=== PATIENT | male | born 1940 | race Caucasian/White ===

== ENCOUNTER → 2019-02-08 | Outpatient (CLI) | payer MEDICARE, OTHER ==
--- NOTE | 2019-02-08 14:53 | Diagnostic Imaging Report ---
EXAM: US TESTICULAR DATE: 02/08/2019 10:48 AM INDICATION: Unilateral inguinal hernia COMPARISON: None FINDINGS: The right testicle is normal in size measuring 3.7 x 1.9 x 2.9 cm. The testicular parenchyma appears heterogeneous. No discrete focal intratesticular lesion is identified. Arterial and venous flow are preserved. There is no evidence for hyperemia. The right epididymis measures 0.7 x 1.3 x 1.1 cm. There is a trace hydrocele present. No varicocele is present. The left testicle is normal in size measuring 3.8 x 2.4 x 3.2 cm. The testicular parenchyma is homogeneous without evidence for focal abnormality. Arterial and venous flow are preserved. There is no evidence for hyperemia. The left epididymis measures 1.1 x 0.5 x 0.6 cm. There is no hydrocele or varicocele present. IMPRESSION: Heterogeneous echotexture of the right testicle which is nonspecific but may reflect sequela of prior trauma or seminiferous tubular atrophy. Orchitis is thought to be less likely given no evidence for hyperemia. Trace right-sided hydrocele. Signed by: Dr. Michael Dennis MD on 02/08/2019 2:50 PM
== END ==
LOC: US 10:33
PROVIDERS: ATTEND Urology
DX: K40.90 Unilateral inguinal hernia, without obstruction or gangrene, not specified as recurrent (principal)
CPT/HCPCS: 76870; 93976

== ENCOUNTER → 2019-07-07 | Day surgery (SDC) | payer MEDICARE, OTHER ==
[2019-07-04 15:25] LABS: BASOPHILS % 0.5 % (0.0-1.0); EOSINOPHILS # (AUTO) 0.2 (0.0-0.4); EOSINOPHILS % 3.2 % (0.0-6.0); HEMATOCRIT 46.8 % (38.2-49.6); HEMOGLOBIN 15.3 g/dL (14.0-18.0); LYMPHOCYTES # (AUTO) 1.7 (1.0-3.2); LYMPHOCYTES % 25.5 % (18.0-39.1); MEAN CORPUSCULAR HEMOGLOBIN 31.7 pg (28-32); MEAN CORPUSCULAR HGB CONC 32.7 g/dL (31-35); MEAN CORPUSCULAR VOLUME 97.1 fL (81-99); MONOCYTES # (AUTO) 0.5 (0.2-0.8); MONOCYTES % 7.8 % (4.4-11.3); NEUTROPHILS # (AUTO) 4.2 (2.1-6.9); NEUTROPHILS % 62.7 % (38.7-80.0); PLATELET COUNT 223 x10e3/uL (140-360); RED BLOOD COUNT 4.82 x10e6/uL (4.3-5.7); RED CELL DISTRIBUTION WIDTH 13.3 % (11.7-14.4)
--- NOTE | 2019-07-04 15:31 | Diagnostic Imaging Report ---
EXAM: CHEST 2 VIEWS DATE: 07/04/2019 3:06 PM INDICATION: Elevated PSA, preoperative evaluation COMPARISON: None FINDINGS: The trachea is midline. The lungs are symmetrically expanded without evidence for large focal consolidation, pneumothorax, or significant pleural effusion. The cardiomediastinal silhouette and pulmonary vasculature are within normal limits. No acute osseous abnormality is identified. The surrounding soft tissues are unremarkable. IMPRESSION: No acute cardiopulmonary process identified. Signed by: Dr. Michael Dennis MD on 07/04/2019 3:27 PM
[~2019-07-07] MED LIST: ASPIRIN325 MG PO; B&O 60MG R/S 60 MG SUPP PR ONE; DEXAMETHASONE SOD PHOS INJ 4 MG/ML VIAL ONE; DIGOXIN125 MCG PO; FENTANYL CITRATE/PF 100MCG/2 ML INJ ONE; GENTAMICIN 80MG/NS 100 ML 200 ML IV ONE; IOPAMIDOL 300MG/ML 50ML INFUS..BTL IV ONE; KETOROLAC TROMETHAMINE 30 MG/ML VIAL ONE; LATANOPROST2.5 ML OP; LIDOCAINE HCL 2% LOCAL INJ 5 ML SDV VIAL INJ ONE; METOPROLOL SUCC25 MG PO; ONDANSETRON HCL INJ 2MG/ML 2ML 2 MG/ML VIAL ONE; PIPER-TAZ 3.375 GM 50 ML ONE; PROPOFOL IV EMULSION 10 MG/ML 20 ML VIAL ONE; SEVOFLURANE INHAL SOLN 250 ML PEN BTL ONE
--- OUTSIDE RECORDS SUMMARY | 2019-07-07 09:27 | XMS REPORT ---
Author Author [facility] Organization [facility] Address Unknown Phone Unavailable Care Team Providers Care Topography Technician Name Role Phone RAMAKRISHNA RED Unavailable Unavailable Problems This patient has no known problems. Allergies, Adverse Reactions, Alerts This patient has no known allergies or adverse reactions. Medications This patient has no known medications. Results Test Description Test Time Test Comments Text Results Atomic Results Result Comments CHEST 2 VIEWS 2019-07-04 15:27:[address] [address] Patient Name: JACKSON ROTH MR #: [id number] : 1940 Age/Sex: 78/M Req #: [id number] [facility] Physician: Ordered by: RAMAKRISHNA RED MD Report #: [id number] Location: OR Room/Bed: Procedure: [id number] DX/CHEST 2 VIEWS Exam Date: 07/04/19 Exam Time: 1500 REPORT STATUS: Signed EXAM: CHEST 2 VIEWS DATE: 07/04/2019 3:06 PM INDICATION: Elevated PSA, preoperative evaluation COMPARISON: None FINDINGS: The trachea is midline. The lungs are symmetrically expanded without evidence for large focal consolidation, pneumothorax, or significant pleural effusion. The cardiomediastinal silhouette and pulmonary vasculature are within normal limits. No acute osseous abnormality is identified. The surrounding soft tissues are unrema rkable. IMPRESSION: No acute cardiopulmonary process identified. Signed by: Dr. Michael Nichole MD on 07/04/2019 3:27 PM Dictated By: MICHAEL NICHOLE MD 26 Transcribed By: HARVEY on 07/04/191526 COPY TO: RAMAKRISHNA RED MD TESTICULAR 2019-02-08 14:46:00 [place] [address] Patient Name: JACKSON ROTH MR #: [id number] : 1940 Age/Sex: 78/M Req #: [id number] Adm Physician: Ordered by: RAMAKRISHNA RED MD Report #: [id number] Location: Room/Bed: Procedure: [id number] US/US TESTICULAR Exam Date: 02/08/19 Exam Time: 1110 REPORT STATUS: Signed EXAM: US TESTICULAR DATE: 02/08/2019 10:48 AM INDICATION: Unilateral inguinal hernia COMPARISON: None FINDINGS: The right testicle is normal in size measuring 3.7 x 1.9 x 2.9 cm. The testicular parenchyma appears heterogeneous. No discre te focal intratesticular lesion is identified. Arterial and venous flow are preserved. There is no evidence for hyperemia. The right epididymis measures 0.7 x 1.3 x 1.1 cm. There is a trace hydrocele present. No varicocele is present. The left testicle is normal in size measuring 3.8 x 2.4 x 3.2 cm. The testicular parenchyma is homogeneous without evidence for focal abnormality. Arterial and venous flow are preserved. There is no evidence for hyperemia. The left epididymis measures 1.1 x 0.5 x 0.6 cm. There is no hydrocele or varicocele present. IMPRESSION: Heterogeneous echotexture of the right testicle which is nonspecific but may reflect sequela of prior trauma or seminiferous tubular atrophy. Orchitis is thought to be less likely given no evidence for hyperemia. Trace right-sided hydrocele. Signed by: Dr. Michael Nichole MD on 02/08/2019 2:50 PM Dictated By: MICHAEL NICHOLE MD 49 Transcribed By: HARVEY on 02/08/19 145 COPY TO: RAMAKRISHNA RED MD US TESTICULAR DOPPLER LTD 2019-02-08 14:46:00 [place] [address] Patient Name: JACKSON ROTH MR #: [id number] : 1940 Age/Sex: 78/M Req #: [id number] Adm Physician: Ordered by: RAMAKRISHNA RED MD Report #: [id number] Location: US Room/Bed: Procedure: [id number] US/US TESTICULAR DOPPLER LTD Exam Date: 02/08/19 Exam Time: 1110 REPORT STATUS: Signed EXAM: US TESTICULAR DATE: 02/08/2019 10:48 AM INDICATION: Unilateral inguinal hernia COMPARISON: None FINDINGS: The right testicle is normal in size measuring 3.7 x 1.9 x 2.9 cm. The testicular parenchyma appears heterogeneous. No discrete focal intratesticular lesion is identified. Arterial and venous flow are preserved. There is no evidence for hyperemia. The right epididymis measures 0.7 x 1.3 x 1.1 cm. There is a trace hydrocele present. No varicocele is present. The left testicle is normal in size measuring 3.8 x 2.4 x 3.2 cm. The testicular parenchyma is homogeneous without evidence for focal abnormality. Arterial and venous flow are preserved. There is no evidence for hyperemia. The left epididymis measures 1.1 x 0.5 x 0.6 cm. There is no hydrocele or varicocele present. IMPRESSION: Heterogeneous echotexture of the right testicle which is nonspecific but may reflect sequela of prior trauma or seminiferous tubular atrophy. Orchitis is thought to be less likely given no evidence for hyperemia. Trace right-sided hydrocele. Signed by: Dr. Michael Nichole MD on 02/08/2019 2:50 PM Dictated By: MICHAEL NICHOLE MD 6 Transcribed By: HARVEY on 02/17/19916 COPY TO: RAMAKRISHNA RED MD
--- NOTE | 2019-07-07 16:06 | Diagnostic Imaging Report ---
OR Fluoroscopy: IMPRESSION: Fluoroscopy service provided in the OR. Interpretation not requested. Signed by: Gavin Munoz MD on 07/07/2019 4:03 PM
[2019-07-07 18:00] VITALS: BP 137/80
--- NOTE | 2019-07-10 00:01 | Operative Report ---
DATE OF PROCEDURE: 07/07/2019 SURGEON: Salvatore Gross MD PREOPERATIVE DIAGNOSES: 1. Elevated PSA. 2. Urinary tract infections. 3. Obstructive benign prostatic hypertrophy. POSTOPERATIVE DIAGNOSES: 1. Elevated PSA. 2. Urinary tract infections. 3. Obstructive benign prostatic hypertrophy. 4. Chronic prostatitis. OPERATIONS PERFORMED: 1. Transrectal ultrasonography interpretation, no radiologist present. 2. Transrectal needle biopsies of the prostate (separate procedure performed for the elevated PSA). 3. Radiological services for supervision and interpretation under ultrasonographic guidance for needle biopsies, no radiologist present. 4. Cystourethroscopy with bilateral ureteral catheterization and retrograde ureteropyelography (separate procedure performed for urinary tract infection across his chronic prostatitis). 5. Interpretation of retrograde ureteropyelography, no radiologist present. 6. Cystourethroscopy with implantation of four UroLift implants (separate procedure performed for the obstructive BPH). ANESTHESIA: General. COMPLICATIONS: None. CLINICAL SUMMARY: Jus Fermin is a 78-year-old man with the above preoperative diagnoses. He was unable to tolerate Flomax and is brought to the operating room due to the fact that he needs additional therapy to manage his voiding symptomatology. He is aware of the risks of bleeding, infection, injury to adjacent structures, need for additional procedures and elected to proceed. This procedure was performed despite the COVID-19 emergency due to the fact that it is not elective. The patient has an elevated PSA and could have cancer. Also, the patient is not voiding optimally and cannot take medicines for this and therefore we need to try to improve his urination to preserve his bladder and renal function. OPERATIVE PROCEDURE IN DETAIL: Informed consent verified. Jus Fermin was properly identified and taken to the operating room, placed on the cystoscopy table in supine position. Anesthesia was uneventfully begun. The patient was then carefully and gently repositioned in dorsal lithotomy position with all pressure points well padded. Digital rectal examination revealed a 50 g prostate, smooth and non-fluctuant without any nodules. Transrectal sonography was performed. Interpretation of transrectal sonography, real-time ultrasonography was performed. The patient's prostate was very large measuring 75 mL. There were diffuse calcifications at the junction between the peripheral zone in the transition zone. These calcifications were dense and had much shadowing as a result. No suspicious hypoechoic lesions were identified. Seminal vesicles were unremarkable, and the prostate capsule was smooth. With ultrasonographic guidance, needle biopsies of the prostate were taken. A total of 12 biopsies were taken, two at each of 6 relocations, these were sent in six containers differentiating right versus left and base versus mid versus apex. The patient's genitalia was then prepared and draped in usual sterile fashion. The cystoscope sheath with a visual obturator in place was atraumatically inserted onto the patient's urethra, this was guided down the unremarkable urethra through the normal sphincteric region through the prostate bed, which was significant for bilobar prostatic hypertrophy with kissing lateral lobes. No elevated median bar. There were calcifications that were very prominent imbedded into the mucosa of the prostatic urethra. We entered the patient's bladder, were panendoscopy revealed heavy trabeculations and small bladder stones that were evacuated. Ureteral catheter was used to cannulate each ureter and retrograde ureteropyelography was performed. Interpretation of retrograde ureteropyelography contrast was instilled in retrograde fashion bilaterally. There were no tumors, no stones, no diverticula. 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 Nevertheless, unobstructed drainage was observed bilaterally fluoroscopically. The UroLift system was atraumatically inserted. We deployed four UroLift implants, two were deployed anterolaterally, 1-1/2 cm distal to the bladder neck and two were deployed at the level of the verumontanum. This resulted in a small continuous anterior channel. There was persistent oozing from the prostate bed from the cystoscopy itself not from the actual points of UroLift implants. Therefore, we placed the Alvarez catheter, irrigated to and further to ensure it worked properly. Belladonna and opium suppository were placed. The patient was uneventfully reversed from anesthesia and taken to recovery room in stable condition. There were no complications to the procedure. He tolerated the procedure well. Estimated blood loss was minimal. PLANS: Plans will be to have the patient take out his own Alvarez catheter at home in 2 days. We will have the patient follow up in the office in approximately 1 month to perform uroflowmetry and bladder ultrasonography. Of course, we will also follow up on the patient's prostate biopsy reports. Salvatore MD FABIANA Gross/RYLEY /[id number] cc: Donato Mosley MD
== END | disposition home or self-care (01) ==
LOC: OR 09:20
PROVIDERS: ATTEND Urology
DX: C80.1 Malignant (primary) neoplasm, unspecified (principal); N39.0 Urinary tract infection, site not specified; N13.8 Other obstructive and reflux uropathy; N41.1 Chronic prostatitis; N42.89 Other specified disorders of prostate; N32.89 Other specified disorders of bladder; N21.0 Calculus in bladder; N40.1 Benign prostatic hyperplasia with lower urinary tract symptoms; R39.14 Feeling of incomplete bladder emptying; R35.1 Nocturia; R39.12 Poor urinary stream; N52.9 Male erectile dysfunction, unspecified; N32.81 Overactive bladder; N39.41 Urge incontinence; N39.44 Nocturnal enuresis; Z01.812 Encounter for preprocedural laboratory examination; Z01.818 Encounter for other preprocedural examination; Z11.59 Encounter for screening for other viral diseases; Z79.82 Long term (current) use of aspirin
CPT/HCPCS: 52005; 55700; C9740; 36415; 71046; 74420; 76872; 76998; 85025; 87635; 88305; 88342; J1100; J1580; J1885; J2001; J2405; J2543; J3010; L8699

== ENCOUNTER 2019-11-22 06:30 | Inpatient (IN) | payer MEDICARE, OTHER ==
[2019-11-17 12:06] LABS: BASOPHILS % 0.7 % (0.0-1.0); EOSINOPHILS # (AUTO) 0.3 (0.0-0.4); EOSINOPHILS % 5.8 % (0.0-6.0); HEMATOCRIT 36.4 % (38.2-49.6); LYMPHOCYTES # (AUTO) 1.8 (1.0-3.2); LYMPHOCYTES % 32.5 % (18.0-39.1); MEAN CORPUSCULAR HEMOGLOBIN 31.2 pg (28-32); MEAN CORPUSCULAR VOLUME 94.5 fL (81-99); MONOCYTES # (AUTO) 0.5 (0.2-0.8); MONOCYTES % 8.3 % (4.4-11.3); NEUTROPHILS # (AUTO) 2.9 (2.1-6.9); NEUTROPHILS % 52.3 % (38.7-80.0); PLATELET COUNT 181 x10e3/uL (140-360); RED BLOOD COUNT 3.85 x10e6/uL (4.3-5.7); RED CELL DISTRIBUTION WIDTH 12.9 % (11.7-14.4)
[~2019-11-22] VITALS: Ht 182.9 cm; Wt 82.1 kg
[~2019-11-22 06:30] MED LIST changes: -B&O 60MG R/S 60 MG SUPP PR ONE; +CITRACAL + D E1 EACH PO; -DEXAMETHASONE SOD PHOS INJ 4 MG/ML VIAL ONE; -FENTANYL CITRATE/PF 100MCG/2 ML INJ ONE; -GENTAMICIN 80MG/NS 100 ML 200 ML IV ONE; -IOPAMIDOL 300MG/ML 50ML INFUS..BTL IV ONE; -KETOROLAC TROMETHAMINE 30 MG/ML VIAL ONE; -LIDOCAINE HCL 2% LOCAL INJ 5 ML SDV VIAL INJ ONE; -ONDANSETRON HCL INJ 2MG/ML 2ML 2 MG/ML VIAL ONE; -PIPER-TAZ 3.375 GM 50 ML ONE; -PROPOFOL IV EMULSION 10 MG/ML 20 ML VIAL ONE; -SEVOFLURANE INHAL SOLN 250 ML PEN BTL ONE
[2019-11-22] MEDS ORDERED: CEFTRIAXONE SOD 1 GM/NS 50 ML 50 ML IV ONE (07:00)
[2019-11-22] MEDS ORDERED: SODIUM CHLORIDE 0.9% 1000ML 1,000 ML ONE (07:01)
[2019-11-22] MEDS ORDERED: GENTAMICIN 80MG/NS 100 ML 200 ML IV ONE (07:01)
--- NOTE | 2019-11-22 07:20 | NUR ---
SPIRITUAL CARE - Pre-Surgery Assessment: Pt in bed. Pt reported supportive attention from family and friends. Intervention: Client Experience Specialist provided pastoral presence, hospitality, sympathetic listening, and prayer. Acquainted pt with availability of quill winder while hospitalized. Outcome: Pt expressed appreciation for visit. No need for follow up indicated at this time. SC[facility]mann Spiritual Care Department O: [phone]
[2019-11-22] MEDS ORDERED: B&O 60MG R/S 60 MG SUPP PR ONE (10:02)
[2019-11-22] MEDS ORDERED: IOPAMIDOL 300MG/ML 50ML INFUS..BTL IV ONE (10:02)
[2019-11-22] MEDS ORDERED: DIPHENHYDRAMINE HCL 25 MG CAP PO PRN (11:15)
[2019-11-22] MEDS ORDERED: ONDANSETRON HCL INJ 2MG/ML 2ML 2 MG/ML VIAL IV PRN (11:15)
[2019-11-22] MEDS ORDERED: B&O 60MG R/S 60 MG SUPP PR PRN (11:15)
[2019-11-22] MEDS ORDERED: SEVOFLURANE INHAL SOLN 250 ML PEN BTL ONE (11:50)
[2019-11-22] MEDS ORDERED: LIDOCAINE HCL 2% LOCAL INJ 5 ML SDV VIAL INJ ONE (11:50)
[2019-11-22] MEDS ORDERED: EPHEDRINE SULFATE INJ 50 MG/ML VIAL ONE (11:50)
[2019-11-22] MEDS ORDERED: ONDANSETRON HCL INJ 2MG/ML 2ML 2 MG/ML VIAL ONE (11:50)
[2019-11-22] MEDS ORDERED: PROPOFOL IV EMULSION 10 MG/ML 20 ML VIAL ONE (11:50)
[2019-11-22] MEDS ORDERED: DEXAMETHASONE SOD PHOS INJ 4 MG/ML VIAL ONE (11:50)
[2019-11-22] MEDS ORDERED: FENTANYL CITRATE/PF 100MCG/2 ML INJ ONE ×2 (12:41→13:14)
[2019-11-22 13:44] LABS: BASOPHILS % 0.6 % (0.0-1.0); EOSINOPHILS # (AUTO) 0.1 (0.0-0.4); EOSINOPHILS % 2.5 % (0.0-6.0); HEMATOCRIT 36.6 % (38.2-49.6); LYMPHOCYTES # (AUTO) 1.3 (1.0-3.2); LYMPHOCYTES % 25.1 % (18.0-39.1); MEAN CORPUSCULAR HEMOGLOBIN 31.2 pg (28-32); MEAN CORPUSCULAR HGB CONC 32.8 g/dL (31-35); MEAN CORPUSCULAR VOLUME 95.1 fL (81-99); MONOCYTES # (AUTO) 0.1 (0.2-0.8); MONOCYTES % 2.7 % (4.4-11.3); NEUTROPHILS # (AUTO) 3.6 (2.1-6.9); NEUTROPHILS % 68.7 % (38.7-80.0); PLATELET COUNT 174 x10e3/uL (140-360); RED BLOOD COUNT 3.85 x10e6/uL (4.3-5.7); RED CELL DISTRIBUTION WIDTH 13.1 % (11.7-14.4)
[2019-11-22 14:01] LABS: ANION GAP 10.5 mmol/L (8-16); BLOOD UREA NITROGEN 17 mg/dL (7-26); BUN/CREATININE RATIO 20 (6-25); CALCIUM 8.1 mg/dL (8.4-10.2); CARBON DIOXIDE 25 mmol/L (22-29); CHLORIDE 109 mmol/L (98-107); CREATININE, SERUM 0.87 mg/dL (0.72-1.25); EST GLOMERULAR FILTRATION RATE > 60 ML/MIN (60-); GLUCOSE 130 mg/dL (74-118); POTASSIUM 4.5 mmol/L (3.5-5.1); SODIUM 140 mmol/L (136-145)
[2019-11-22 14:48] VITALS: BP 157/73
[2019-11-22 15:53] VITALS: BP 157/73
[2019-11-22] MEDS: DOCUSATE SODIUM 100 MG CAP PO SCH (17:36)
[2019-11-22] MEDS: D5.45%NS/KCL 20MEQ 1,000 ML IV SCH (17:36)
--- NOTE | 2019-11-22 19:10 | NUR ---
Received the pt in report.on contd.bladder irrigation.iv fluid running.stable condition.
[2019-11-22 20:00] VITALS: BP 119/66
[2019-11-22 20:57] VITALS: BP 119/66
[2019-11-22] MEDS: DIGOXIN 0.125 MG TAB PO SCH (21:00)
--- NOTE | 2019-11-22 21:20 | NUR ---
CALL PLACED TO MD LARA REGARDING TO CONTINUE SOME OF THE HOME MEDICATIONS.MD AGREED TO CONTINUE DIGOXIN 0.125 MG HS &METOPROLOL 6.25 MG PO HS.CALL LIGHT WITHIN REACH.AMBULATES.STABLE CONDITION.
[2019-11-22] MEDS: ACETAMINOPHEN/CODEINE 300MG - 30MG TAB PO PRN (21:51)
[2019-11-22] MEDS: METOPROLOL SUCCINATE 25 MG TAB XL PO SCH (23:21)
[2019-11-23] VITALS (8 sets, daily range): BP systolic 109–139; BP diastolic 59–70
[2019-11-23 05:13] LABS: BASOPHILS % 0.1 % (0.0-1.0); EOSINOPHILS # (AUTO) 0.1 (0.0-0.4); EOSINOPHILS % 0.8 % (0.0-6.0); HEMATOCRIT 35.6 % (38.2-49.6); HEMOGLOBIN 11.6 g/dL (14.0-18.0); LYMPHOCYTES # (AUTO) 1.6 (1.0-3.2); LYMPHOCYTES % 17.6 % (18.0-39.1); MEAN CORPUSCULAR HEMOGLOBIN 30.9 pg (28-32); MEAN CORPUSCULAR HGB CONC 32.6 g/dL (31-35); MEAN CORPUSCULAR VOLUME 94.9 fL (81-99); MONOCYTES # (AUTO) 0.7 (0.2-0.8); NEUTROPHILS # (AUTO) 6.5 (2.1-6.9); NEUTROPHILS % 73.2 % (38.7-80.0); PLATELET COUNT 192 x10e3/uL (140-360); RED BLOOD COUNT 3.75 x10e6/uL (4.3-5.7); RED CELL DISTRIBUTION WIDTH 13.2 % (11.7-14.4)
[2019-11-23 05:42] LABS: ANION GAP 13.5 mmol/L (8-16); BLOOD UREA NITROGEN 18 mg/dL (7-26); BUN/CREATININE RATIO 21 (6-25); CARBON DIOXIDE 26 mmol/L (22-29); CHLORIDE 105 mmol/L (98-107); CREATININE, SERUM 0.87 mg/dL (0.72-1.25); EST GLOMERULAR FILTRATION RATE > 60 ML/MIN (60-); GLUCOSE 115 mg/dL (74-118); POTASSIUM 4.5 mmol/L (3.5-5.1); SODIUM 140 mmol/L (136-145)
[2019-11-23] MEDS: D5.45%NS/KCL 20MEQ 1,000 ML IV SCH ×3 (06:19→20:14)
--- NOTE | 2019-11-23 07:01 | NUR ---
BED SIDE SHIFT REPORT GIVEN TO ON COMING RN.STABLE CONDITION.
[2019-11-23] MEDS: DOCUSATE SODIUM 100 MG CAP PO SCH ×2 (07:58→16:48)
[2019-11-23] MEDS: CEFTRIAXONE SOD 1 GM/NS 50 ML 50 ML IV SCH (09:56)
[2019-11-23] MEDS: ACETAMINOPHEN/CODEINE 300MG - 30MG TAB PO PRN ×2 (15:15→20:30)
--- NOTE | 2019-11-23 19:00 | NUR ---
Received the pt in report.lyeing in the bed.no pain voiced.on CBI.pink colored urine draining.call light within reach.stable condition.
[2019-11-23] MEDS: DIGOXIN 0.125 MG TAB PO SCH (21:35)
[2019-11-23] MEDS: METOPROLOL SUCCINATE 25 MG TAB XL PO SCH (21:35)
--- NOTE | 2019-11-23 22:21 | NUR ---
C/o nausea.zofran 4 mg iv given.keep monitor the pt.
[2019-11-24] VITALS (10 sets, daily range): BP systolic 103–152; BP diastolic 56–73
--- NOTE | 2019-11-24 00:45 | NUR ---
Resting in the bed.stable condition.
[2019-11-24] MEDS: ACETAMINOPHEN/CODEINE 300MG - 30MG TAB PO PRN ×5 (00:56→21:05)
[2019-11-24] MEDS: PHENAZOPYRIDINE HCL 100 MG TAB PO PRN ×3 (00:56→14:38)
[2019-11-24 05:06] LABS: BASOPHILS % 0.4 % (0.0-1.0); EOSINOPHILS # (AUTO) 0.2 (0.0-0.4); EOSINOPHILS % 2.8 % (0.0-6.0); HEMATOCRIT 34.8 % (38.2-49.6); HEMOGLOBIN 11.4 g/dL (14.0-18.0); LYMPHOCYTES # (AUTO) 1.5 (1.0-3.2); MEAN CORPUSCULAR HEMOGLOBIN 31.8 pg (28-32); MEAN CORPUSCULAR HGB CONC 32.8 g/dL (31-35); MEAN CORPUSCULAR VOLUME 96.9 fL (81-99); MONOCYTES # (AUTO) 0.6 (0.2-0.8); MONOCYTES % 7.3 % (4.4-11.3); NEUTROPHILS # (AUTO) 5.5 (2.1-6.9); NEUTROPHILS % 70.1 % (38.7-80.0); PLATELET COUNT 159 x10e3/uL (140-360); RED BLOOD COUNT 3.59 x10e6/uL (4.3-5.7); RED CELL DISTRIBUTION WIDTH 13.3 % (11.7-14.4)
[2019-11-24 05:29] LABS: ANION GAP 10.5 mmol/L (8-16); BLOOD UREA NITROGEN 15 mg/dL (7-26); BUN/CREATININE RATIO 18 (6-25); CALCIUM 7.9 mg/dL (8.4-10.2); CARBON DIOXIDE 25 mmol/L (22-29); CHLORIDE 109 mmol/L (98-107); CREATININE, SERUM 0.84 mg/dL (0.72-1.25); EST GLOMERULAR FILTRATION RATE > 60 ML/MIN (60-); GLUCOSE 104 mg/dL (74-118); POTASSIUM 4.5 mmol/L (3.5-5.1); SODIUM 140 mmol/L (136-145)
--- NOTE | 2019-11-24 07:00 | NUR ---
Bed side shift report given to oncoming RN.stable condition.
[2019-11-24] MEDS: DOCUSATE SODIUM 100 MG CAP PO SCH ×2 (08:26→16:51)
[2019-11-24] MEDS: D5.45%NS/KCL 20MEQ 1,000 ML IV SCH ×2 (08:26→20:16)
[2019-11-24] MEDS: CEFTRIAXONE SOD 1 GM/NS 50 ML 50 ML IV SCH (08:26)
--- NOTE | 2019-11-24 08:36 | NUR ---
bedside shift report received pt in stable condition denies pain at this time, updated on poc voiced understanding, hollingsworth to bsd with pink tinged urine noted, cbi in progress no other co voiced call light in reach will continue to monitor
--- NOTE | 2019-11-24 17:50 | NUR ---
CBI clamped as per ordered, urine yellow no clots noted, will continue to monitor
--- NOTE | 2019-11-24 19:03 | NUR ---
WALKING ROUNDS PERFORMED, RECEIVED PT LAYING SEMI FOWLERS IN BED, AAOX3, RR EVEN AND NON-LABORED, ON ROOM AIR. NO S/SX OF DISTRESS NOTED. CBI CLAMPED AT THIS TIME. LIGHT OLIVE URINE NOTED TO CATHETER BAG. LEFT PT LAYING SEMI FOWLERS IN BED, BED IN LOW LOCKED POSITION, SIDE RAILS UPX2, CALL LIGHT AND PHONE WITHIN REACH.
--- NOTE | 2019-11-24 20:00 | NUR ---
PT AMBULATING IN REA, STEADY GAIT NOTED.
[2019-11-24] MEDS: METOPROLOL SUCCINATE 25 MG TAB XL PO SCH (20:20)
[2019-11-24] MEDS: DIGOXIN 0.125 MG TAB PO SCH (20:20)
[2019-11-25] MEDS: ACETAMINOPHEN/CODEINE 300MG - 30MG TAB PO PRN ×3 (01:50→10:36)
[2019-11-25 04:03] VITALS: BP 125/63
[2019-11-25 05:55] LABS: BASOPHILS % 0.4 % (0.0-1.0); EOSINOPHILS # (AUTO) 0.3 (0.0-0.4); EOSINOPHILS % 4.9 % (0.0-6.0); HEMATOCRIT 33.3 % (38.2-49.6); HEMOGLOBIN 10.7 g/dL (14.0-18.0); LYMPHOCYTES # (AUTO) 1.2 (1.0-3.2); LYMPHOCYTES % 17.2 % (18.0-39.1); MEAN CORPUSCULAR HEMOGLOBIN 30.9 pg (28-32); MEAN CORPUSCULAR HGB CONC 32.1 g/dL (31-35); MEAN CORPUSCULAR VOLUME 96.2 fL (81-99); MONOCYTES # (AUTO) 0.6 (0.2-0.8); MONOCYTES % 8.7 % (4.4-11.3); NEUTROPHILS # (AUTO) 4.7 (2.1-6.9); NEUTROPHILS % 68.5 % (38.7-80.0); PLATELET COUNT 156 x10e3/uL (140-360); RED BLOOD COUNT 3.46 x10e6/uL (4.3-5.7); RED CELL DISTRIBUTION WIDTH 13.3 % (11.7-14.4)
[2019-11-25 06:15] LABS: ANION GAP 12.4 mmol/L (8-16); BLOOD UREA NITROGEN 15 mg/dL (7-26); BUN/CREATININE RATIO 17 (6-25); CARBON DIOXIDE 27 mmol/L (22-29); CHLORIDE 106 mmol/L (98-107); EST GLOMERULAR FILTRATION RATE > 60 ML/MIN (60-); GLUCOSE 106 mg/dL (74-118); POTASSIUM 4.4 mmol/L (3.5-5.1); SODIUM 141 mmol/L (136-145)
--- NOTE | 2019-11-25 07:00 | NUR ---
bedside shift report received pt in stable condition denies pain at this time updated on poc voiced understanding, ivf infusing to l fa 20g no ss of infiltration noted, hollingsworth to bsd with yellow urine noted, no other co voiced call light in reach will continue to monitor
[2019-11-25 08:29] VITALS: BP 127/66
[2019-11-25] MEDS: DOCUSATE SODIUM 100 MG CAP PO SCH ×2 (08:45→17:42)
[2019-11-25] MEDS: CEFTRIAXONE SOD 1 GM/NS 50 ML 50 ML IV SCH (08:45)
[2019-11-25] MEDS: D5.45%NS/KCL 20MEQ 1,000 ML IV SCH (08:57)
[2019-11-25 09:13] VITALS: BP 127/66
[2019-11-25 14:42] VITALS: BP 117/61
--- NOTE | 2019-11-25 15:00 | NUR ---
DC'D RUIZ PER ORDERED PT TOLERATED WELL, PT TO HAVE 5 SERIAL URINES BEFORE DISCHARGING HOME.
[2019-11-25 17:52] VITALS: BP 157/69
--- NOTE | 2019-11-25 18:10 | NUR ---
SPOKE WITH DR. RED INFORMED PT HAD VOIDED 5 SERIAL URINES PER ORDERED, URINE ORANGISH/PINKISH COLOR NO CLOTS NOTED, OK TO [facility] PER UROLOGY STANDPOINT, SPOKE WITH DR. LARA, OK TO [facility]
--- NOTE | 2019-11-25 18:46 | NUR ---
WALKING ROUNDS PERFORMED, RECEIVED PT AMBULATING IN ROOM TALKING ON PHONE WITH DAUGHTER. PT STATES HIS RIDE HOME WILL BE ARRIVING SOON. NO S/SX OF DISTRESS NOTED. LEFT PT SITTING ON SIDE OF BED, BED IN LOW LOCKED POSITION, SIDE RAILS UPX2, CALL LIGHT AND PHONE WITHIN REACH.
--- NOTE | 2019-11-25 19:10 | NUR ---
PT TRANSPORTED BY WHEELCHAIR TO PRIVATE AUTO. PT IN STABLE CONDITION. NO S/SX OF DISTRESS NOTED. PT BELONGINGS WITH DISCHARGE PAPERWORK WITH PATIENT.
--- NOTE | 2019-11-26 01:32 | Discharge Summary ---
DISCHARGE DIAGNOSIS: Status post transurethral resection of the prostate. HISTORY OF PRESENT ILLNESS AND HOSPITAL COURSE: See hospital chart for full details. The patient is a gentleman, who brought in with severe BPH, where he had a TURP performed by Dr. Gross without any complications. Postoperatively, he did have hematuria, but he is on constant irrigation by the time he was discharged and he is able to do a voiding trial without any further hematuria. The rest of his vital signs and labs were stable and he was able to be discharged home and follow up in 2 weeks with both me and Dr. Gross. Please see hospital chart for full details. MD JAM Cornejo/RYLEY /[id number]
--- OUTSIDE RECORDS SUMMARY | 2019-11-26 15:34 | XMS REPORT | Continuity of Care Document ---
Author Author [facility] t Organization [facility] Address [address] [place] [address] Phone Unavailable Care Team Providers Care Java J2Ee Lead Name Role Phone MD MERVIN LARA PCP RAMAKRISHNA RED Unavailable Payers Payer Name Policy Type Policy Number Effective Date Expiration Date S ai Miscellaneous Indemnity [id number] 2018 00:00:00 [facility] Medicare A & B [id number] 2004 00:00:00 [facility] Cdc Review Covid19 [id number] [facility] Problems Condition Name Condition Details Condition Category Status Onset Date Resolution Date Last Treatment Date Treating Clinician Comments Source Problem Condition Active [facility] Allergies, Adverse Reactions, Alerts This patient has no known allergies or adverse reactions. Social History Social Habit Start Date Stop Date Quantity Comments Source Sex Assigned At 1940 00:00:00 1940 00:[birth year]:00 Male [facility] Medications Ordered Medication Name Filled Medication Name Start Date Stop Da te Current Medication? Ordering Clinician Indication Dosage Frequency Signature (SIG) Comments Components Source Aspirin Aspirin Yes 325 Daily [facility] Calcium Carb & Cit/Vitamin D3 (Citracal + D Er Tablet) 1 Each TABLET.ER Calcium Carb & Cit/Vitamin D3 (Citracal + D Er Tablet) 1 Each TABLET.ER Yes 2 Daily [facility] Digoxin Digoxin Yes .125 Bedtime [facility] Latanoprost Latanoprost Yes 2.5 Daily [facility] Metoprolol Succinate Metoprolol Succinate Yes 6.25 Bedtime [facility] Vital Signs Vital Name Observation Time Observation Value Comments Source Body Temperature 2019-11-25 17:52:00 97.8 [degF] [facility] BMI (Body Mass Index) 2019-11-22 15:46:00 24.5 kg/m2 [facility] Weight 2019-11-22 14:48:00 181 [lb_av] [facility] Procedures Procedure Date / Time Performed Performing Clinician [facility] e CYSTOSCOPY & URETER CATHETER 2019-07-07 00:00:00 [facility] BIOPSY OF PROSTATE 2019-07-07 00:00:00 [facility] [id number] 2019-07-07 00:00:00 [facility] Intraoperative ultrasound 2019-07-07 00:00:00 [facility] Ultrasound of prostate with transrectal approach 2019-07-07 00:0 0:00 [facility] X-ray of chest, two views 2019-07-04 00:00:00 [facility] Testicular ultrasound 2019-02-08 00:00:00 [facility] Dup-scan artl scott abdl/pel/scrot&/RPR orgn lmt 2019-02-08 00:00: 00 [facility] Plan of Care Planned Activity Planned Date Details Comments Source Instructions Post Operative Pain [facility] Instructions TURP [facility] Encounters Start Date/Time End Date/Time Encounter Type Admission Type Attendi [facility] Facility Care Department Encounter ID Source 2019-11-22 11:05:00 2019-11-25 19:10:00 Discharged Inpatient [id number] [facility]-07-07 09:20:00 2019-07-07 09:20:00 Registered Surgical Day Car e 3 HAMPEL, RAMAKRISHNA [facility] [id number] [facility] 2019-02-08 09:33:00 2019-02-08 09:33:00 Registered Clinic 3 JENNIFER VASQUEZ, RAMAKRISHNA [facility] [id number] [facility] Results Test Description Test Time Test Comments Results Result Comments Source Blood leukocytes automated count (number/volume) 2019-11-25 04:55:00 Test Item White Blood Count (test code = 6690-2) 6.79 4.8-10.8 [facility] automated count (number/volume)2019-11-25 04:55:00* Test Item Value Reference Range Interpretation Comments Red Blood Count (test code = 789-8) 3.46 4.3-5.7 [facility] hemoglobin measurement (moles/volume)2019-11-25 04:55:00* Test Item Value Reference Range Interpretation Comments Hemoglobin (test code = 12612-9) 10.7 14.0-18.0 [facility] blood hematocrit (volume fraction)2019-11-25 04:55:00* Test Item Value Reference Range Interpretation Comments Hematocrit (test code = 4544-3) 33.3 38.2-49.6 [facility] erythrocyte mean corpuscular [id number] 04:55:00* Test Item Value Reference Range Interpretation Comments Mean Corpuscular Volume (test code = 787-2) 96.2 81-99 [facility] eryth[facility] mean corpuscular hemoglobin (mass per erythrocyte)2019-11-25 04:55:00* Test Item Value Reference Range Interpretation Comments Mean Corpuscular Hemoglobin (test code = 785-6) 30.9 28-32 [facility] erythrocyte mean corpuscular hemoglobin concentration measurement (mass/volume)2019-11-25 04:55:00* Test Item Value Reference Range Interpretation Comments Mean Corpuscular Hemoglobin Concent (test code = 786-4) 32.1 31-35 [facility]ano[facility]DW MctRz-Rgz3690-14-26 04:55:00* Test Item Value Reference Range Interpretation Comments Red Cell Distribution Width (test code = 30884-3) 13.3 11.7 -14.4 [facility] blood platelet count (count/volume)2019-11-25 04:55:00* Test Item Value Reference Range Interpretation Comments Platelet Count (test code = 777-3) 156 140-360 [facility] blood segmented neutrophil count as percentage of total cgycdpvwgo3756-38-50 04:55:00* Test Item Value Reference Range Interpretation Comments Neutrophils (%) (Auto) (test code = 92268-2) 68.5 38.7-80.0 [facility] blood lymphocyte count as percentage ot total pszjacetch9376-23-57 04:55:00* Test Item Value Reference Range Interpretation Comments Lymphocytes (%) (Auto) (test code = 736-9) 17.2 18.0-39.1 [facility] blood monocyte count as percentage of total fvirhsrlkq2105-52-71 04:55:00* Test Item Value Reference Range Interpretation Comments Monocytes (%) (Auto) (test code = 5905-5) 8.7 4.4-11.3 [facility] blood eosinophil count as percentage of total evsjyxnvpq9221-60-52 04:55:00* Test Item Value Reference Range Interpretation Comments Eosinophils (%) (Auto) (test code = 713-8) 4.9 0.0-6.0 [facility] blood basophil count as percentage of total ugpgsuxnxc3821-50-86 04:55:00* Test Item Value Reference Range Interpretation Comments Basophils (%) (Auto) (test code = 706-2) 0.4 0.0-1.0 [facility]anoFluoroscopic procedure less than one hour knkvvewg9226-51-62 04:55:00* Test Item Value Reference Range Interpretation Comments IM GRANULOCYTES % (test code = IM GRANULOCYTES %) 0.3 0.0- 1.0 [facility] blood neutrophil count 2019-11-25 04:55:00* Test Item Value Reference Range Interpretation Comments Neutrophils # (Auto) (test code = 751-8) 4.7 2.1-6.9 [facility] lymphocytes count (number/volume) 2019-11-25 04:55:00* Test Item Value Reference Range Interpretation Comments Lymphocytes # (Auto) (test code = 43019-2) 1.2 1.0-3.2 [facility] monocytes automated count (number/volume)2019-11-25 04:55:00* Test Item Value Reference Range Interpretation Comments Monocytes # (Auto) (test code = 742-7) 0.6 0.2-0.8 [facility] blood eosinophil count 2019-11-25 04:55:00* Test Item Value Reference Range Interpretation Comments Eosinophils # (Auto) (test code = 711-2) 0.3 0.0-0.4 [facility] blood basophil count (count/volume)2019-11-25 04:55:00* Test Item Value Reference Range Interpretation Comments Basophils # (Auto) (test code = 704-7) 0.0 0.0-0.1 [facility]anoFluoroscopic procedure less than one hour kbqvvuwi1264-23-19 04:55:00* Test Item Value Reference Range Interpretation Comments Absolute Immature Granulocyte (auto (chacho t code = Absolute Immature Granulocyte (auto) 0.02 0-0.1 [facility] plasma sodium measurement (moles/volume)2019-11-25 04:55:00* Test Item Value Reference Range Interpretation Comments Sodium Level (test code = 2951-2) 141 136-145 [facility] or plasma potassium measurement (moles/volume)2019-11-25 04:55:00* Test Item Value Reference Range Interpretation Comments Potassium Level (test code = 2823-3) 4.4 3.5-5.1 [facility] or plasma chloride measurement (moles/volume)2019-11-25 04:55:00* Test Item Value Reference Range Interpretation Comments Chloride Level (test code = 2075-0) 106 98-107 [facility] or plasma carbon dioxide, total measurement (moles/volume)2019-11-25 04:55:00* Test Item Value Reference Range Interpretation Comments Carbon Dioxide Level (test code = 2028-9) 27 22-29 [facility] or plasma anion ftb9770-77-44 04:55:00* Test Item Value Reference Range Interpretation Comments Anion Gap (test code = 91070-3) 12.4 8-16 [facility]rum or plasma urea nitrogen measurement (mass/volume)2019-11-25 04:55:00* Test Item Value Reference Range Interpretation Comments Blood Urea Nitrogen (test code = 3094-0) 15 7-26 [facility]rum or plasma creatinine measurement (mass/volume)2019-11-25 04:55:00* Test Item Value Reference Range Interpretation Comments Creatinine (test code = 2160-0) 0.90 0.72-1.25 [facility]rum or plasma urea nitrogen/creatinine mass iqspn7611-97-57 04:55:00* Test Item Value Reference Range Interpretation Comments BUN/Creatinine Ratio (test code = 3097-3) 17 6-25 [facility]anoEstimated glomerular filtration rate (GFR) mrcohohrfxlon9303-26-79 04:55:00* Test Item Value Reference Range Interpretation Comments Estimat Glomerular Filtration Rate (test code = 497736183) > 60 >60 Ranges were taken from the National Kidney Disease Education Program and the [facility] literature.Reference ranges:60 or greater: Dzimqt16-83 ( for 3 consecutive months): Chronic kidney disease 15 or less: Kidney failureBaylor Scott & White Medical Center – PlanoGlucose vomyqzwwyne8742-50-73 04:55:00* Test Item Value Reference Range Interpretation Comments Glucose Level (test code = WUR7763) 106 74-118 [facility]ererum or plasma calcium measurement (mass/volume)2019-11-25 04:55:00* Test Item Value Reference Range Interpretation Comments Calcium Level (test code = 19190-2) 8.0 8.4-10.2 [facility]ererum or plasma magnesium measurement (mass/volume)2019-11-22 13:35:00* Test Item Value Reference Range Interpretation Comments Magnesium Level (test code = 70827-8) 1.9 1.3-2.1 [facility]Flu[facility] procedure less than one hour wzquntds5012-54-76 10:15:00* Test Item Value Reference Range Interpretation Comments Coronavirus (PCR) (test code = Coronavirus (PCR)) NOT DETECTED NOTD ETECTED SARS-CoV-2 PCRHologic Aptima SARS-CoV-2 assay is a nucleic amplification test in tended for the qualitative detection of RNA from SARS-CoV-2 from nasopharyngeal (FUSION JUNCTURE GRINDER) specimens. It is used under Emergency Use Authorization (EUA) by FDA.A posi tive result is indicative of the presence of SARS-CoV-2 RNA. Clinical correlatio n with patient history and other diagnostic information is necessary to determin e patient infection status.A negative (Not Detected) result does not preclude SA RS-CoV-2 infection. Clinical Correlation with patient history and other diagnost ic information should be used in patient management decisions.Invalid: Unable to generate a valid result on this specimen. Please submit a new specimen for repr at testing oc clinically indicated.Tesing performed by:[facility] Laboratory Services3 [address] [facility] [id number], Tony eryes MD, PhDBaylor Scott & White [facility] Center [facility] PlanoRETROGRADE PYELOGRAM 2019-07-07 16:03:00 [facility] [address] [place], [place] [address] Patient Name: JACKSON ROTH MR #: [id number] : 1940 Age/Sex: 78/M Req #: [id number] Adm Physician: Ordered by: RAMAKRISHNA RED MD Report #: [id number] Location: OR Room/Bed: Procedure: [id number] DX/RETROGRADE PYEL OGRAM Exam Date: 07/07/19 Exam Time: 1212 REPORT STATUS: Signed OR Fluoroscopy: IMPRESSION: Fluoroscopy service provided in the OR. Interpretation not reques kev. Signed by: Gaivn Jackson MD on 07/07/2019 4:03 PM Dictated By: Pablo JACKSON MD 02 Transcribed By: HARVEY on 07/07/19 1603 COPY TO: RAMAKRISHNA RED MD CHEST 2 [id number] 15:27:00 [place] [address] Patient Name: JACKSON ROTH MR #: [id number] : 1940 Age/Sex: 78/M Req #: [id number] Adm Physician: Ordered by: RAMAKRISHNA RED MD Report #: [id number] Location: OR Room/Bed: Procedure: [id number] DX/CHEST 2 VIEWS Exam Date: 07/04/19 Exam Time: 1500 REPORT STATUS: Signed EXAM: CHEST 2 VIEWS D ATE: 07/04/2019 3:06 PM INDICATION: Elevated PSA, preoperative evaluation COMPARISON: None FINDINGS: The trachea is midline. The lungs are sym metrically expanded without evidence for large focal consolidation, pneumothor ax, or significant pleural effusion. The cardiomediastinal silhouette and p ulmonary vasculature are within normal limits. No acute osseous abnormality is identified. The surrounding soft tissues are unremarkable. IMPRESSION : No acute cardiopulmonary process identified. Signed by: Dr. Michael borden MD on 07/04/2019 3:27 PM Dictated By: MICHAEL DENNIS MD 1527 Transcribed By: HARVEY on 0 1527 COPY TO: RAMAKRISHNA RED MD [id number] 14:46:00 [place] [address] Patient Name: JACKSON ROTH MR #: [id number] : 0 Age/Sex: 78/M Req #: [id number] Adm Physician: Ordered by: RAMAKRISHNA RED MD Report #: [id number] Location: US R oom/Bed: Procedure: [id number] US/US T ESTICULAR Exam Date: 02/08/19 Exam Time: 1110 REPORT STATUS: Signed EXAM: US TESTIC ULJOHN DATE: 02/08/2019 10:48 AM INDICATION: Unilateral inguinal herni a COMPARISON: None FINDINGS: The right testicle is normal in size measuring 3.7 x 1.9 x 2.9 cm. The testicular parenchyma appears heterogeneous. No discrete focal intratesticular lesion is identified. Arterial and venous f low are preserved. There is no evidence for hyperemia. The right epididymis me asures 0.7 x 1.3 x 1.1 cm. There is a trace hydrocele present. No varicocele i s present. The left testicle is normal in size measuring 3.8 x 2.4 x 3.2 cm . The testicular parenchyma is homogeneous without evidence for focal abnormal ity. Arterial and venous flow are preserved. There is no evidence for hyperemi a. The left epididymis measures 1.1 x 0.5 x 0.6 cm. There is no hydrocele or varicocele present. IMPRESSION: Heterogeneous echotexture of the r ight testicle which is nonspecific but may reflect sequela of prior trauma or seminiferous tubular atrophy. Orchitis is thought to be less likely given no e vidence for hyperemia. Trace right-sided hydrocele. Signed by: Dr. Jacki Dennis MD on 02/08/2019 2:50 PM Dictated By: MICHAEL DENNIS MD Electro nically Signed By: MICHAEL DENNIS MD on 02/08/191449 Transcribed By: HARVEY on 02/08/19 145 COPY TO: RAMAKRISHNA RED MD US TESTICULAR DOPPLER LTD 2019-02-08 14:46:00 [place] [address] Patient Name: JACKSON ROTH MR #: [id number] : 1940 Age/Sex: 78/M Req #: [id number] Adm Physician: Ordered by: RAMAKRISHNA RED MD Report #: [id number] Location: US Room/Bed: Procedure: [id number] US/US T ESTICULAR DOPPLER LTD Exam Date: 02/08/19 Exam Time: 1110 REPORT STATUS: Signed EXAM : US TESTICULAR DATE: 02/08/2019 10:48 AM INDICATION: Unilateral in guinal hernia COMPARISON: None FINDINGS: The right testicle is nor mal in size measuring 3.7 x 1.9 x 2.9 cm. The testicular parenchyma appears he terogeneous. No discrete focal intratesticular lesion is identified. Arterial and venous flow are preserved. There is no evidence for hyperemia. The right e pididymis measures 0.7 x 1.3 x 1.1 cm. There is a trace hydrocele present. No varicocele is present. The left testicle is normal in size measuring 3.8 x 2.4 x 3.2 cm. The testicular parenchyma is homogeneous without evidence for fo raymon abnormality. Arterial and venous flow are preserved. There is no evidence for hyperemia. The left epididymis measures 1.1 x 0.5 x 0.6 cm. There is no hy drocele or varicocele present. IMPRESSION: Heterogeneous echotext ure of the right testicle which is nonspecific but may reflect sequela of prio r trauma or seminiferous tubular atrophy. Orchitis is thought to be less likel y given no evidence for hyperemia. Trace right-sided hydrocele. Signed by: Dr. Michael Dennis MD on 02/08/2019 2:50 PM Dictated By: MICHAEL DENNIS MD 6 Transcribed By: HARVEY on 02/17/19916 COPY TO: RAMAKRISHNA RED MD
--- NOTE | 2019-12-01 11:26 | Operative Report ---
DATE OF PROCEDURE: 11/22/2019 SURGEON: Salvatore Gross MD PREOPERATIVE DIAGNOSES: 1. Obstructive benign prostatic hyperplasia. 2. Incomplete bladder emptying. POSTOPERATIVE DIAGNOSES: 1. Obstructive benign prostatic hyperplasia. 2. Incomplete bladder emptying.. 3. 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 OPERATIONS PERFORMED: 1. Cystourethroscopy with calibration and dilation of urethral stricture disease, the fossa navicularis, and the bulbar urethra (separate procedure performed for the diagnosis of stricture). 2. Cystourethroscopy with bilateral ureteral catheterization and retrograde ureteropyelography (separate procedure performed for the incomplete bladder emptying). 3. Interpretation of retrograde ureteropyelography. 4. Supervision of fluoroscopy, no radiologist present. 5. Cystourethroscopy with transurethral resection of the prostate utilizing the plasma button electrode. ANESTHESIA: General. COMPLICATIONS: None. CLINICAL SUMMARY: Jus Fermin is a 78-year-old man who is status post UroLift procedure. The patient has prostate cancer and is currently on Lupron. He is brought to the operating room for the above procedures. He is aware of the risks of bleeding, infection, injury to adjacent structures, need for additional procedures, and elected to proceed. OPERATIVE PROCEDURE IN DETAIL: Informed consent was verified. Jus Fermin was properly identified, taken to the operating room, placed on the cystoscopy table in supine position. Anesthesia was uneventfully begun. The patient was then carefully gently repositioned in the dorsal lithotomy position with all pressure points well padded. His genitalia were prepared and draped in usual sterile fashion. The 22.5-Tristanian cystoscope sheath with a visual obturator in place could clearly be placed in the meatus, but could not be passed through the fossa navicularis. The fossa navicularis was then calibrated to 18-Tristanian in size and progressively dilated to 28-Tristanian in size. We then inserted the cystoscope and sheath into the patient's otherwise unremarkable distal urethra and brought it to the bulbar region where there was another stricture. That stricture was probably also 18-Tristanian in size. We dilated through that stricture with the visual obturator was 22.5-Tristanian, we went through the sphincteric region and through the prostate bed, which was significant for visually obstructing BPH including the median lobe and kissing lateral lobes. There was an anterior channel that was small from the patient's prior UroLift and to the patient's bladder where there were trabeculations noted, but no tumors, no stones, and no diverticula. An 8-Tristanian catheter was used to cannulate each ureter and retrograde ureteral pyelograms were performed. Interpretation of retrograde ureteropyelography contrast was instilled in retrograde fashion bilaterally. 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 There was no duplication on the right-hand side. There was no hydronephrosis and unobstructed drainage was observed bilaterally fluoroscopically. We utilized Jemma sounds to dilate the bulbar urethra to 28-Tristanian and then we easily placed the 28-Tristanian continuous-flow resectoscope sheath. We utilized the plasma button electrode to vaporize the prostate, first we eliminated the median lobe down to its base, taking care to avoid injuring the ureteral orifices. We then vaporized the prostate from the bladder neck to maneuver past the verumontanum and down the surgical capsule. Pinpoint electrocautery was utilized to achieve hemostasis. Several of the UroLift implants were removed. The prostate tissue was significant for chronic prostatitis. It was heavily scarred, which would explain why the UroLift procedure may not have worked ideally as it would in a pliable prostate. The resectoscope was withdrawn. The Alvarez catheter was placed. It was irrigated to and fro to ensure it worked properly, and it was placed on continuous irrigation. The patient was with clear efflux. The patient was uneventfully reversed from anesthesia and taken to recovery room in stable condition. There were no complications to the procedure. He tolerated the procedure well. Estimated blood loss was minimal. Explicit postop instructions were given. We will follow the patient up throughout his hospitalization and of course on long-term basis. Salvatore Gross MD OH/MODL /[id number] cc: Donato Mosley MD
== END 2019-11-25 19:10 | disposition home or self-care (01) | DRG 714 ==
LOC: OR 06:30 → PACU V 11:05 → MED/SURG 14:48
PROVIDERS: ADMIT Internal Medicine; ATTEND Internal Medicine
PROC: BT141ZZ Fluoroscopy of Kidneys, Ureters and Bladder using Low Osmolar Contrast (ICD-10-PCS; 2019-11-22)
PROC: 0V508ZZ Destruction of Prostate, Via Natural or Artificial Opening Endoscopic (ICD-10-PCS; principal; 2019-11-22 08:30)
PROC: 0T7D8ZZ Dilation of Urethra, Via Natural or Artificial Opening Endoscopic (ICD-10-PCS; 2019-11-22 08:30)
DX: N40.1 Benign prostatic hyperplasia with lower urinary tract symptoms (principal); R39.14 Feeling of incomplete bladder emptying; I48.91 Unspecified atrial fibrillation; I10 Essential (primary) hypertension; D64.9 Anemia, unspecified; E78.5 Hyperlipidemia, unspecified; N35.912 Unspecified bulbous urethral stricture, male; C61 Malignant neoplasm of prostate; N43.3 Hydrocele, unspecified; Z11.59 Encounter for screening for other viral diseases; Z87.891 Personal history of nicotine dependence; Z82.49 Family history of ischemic heart disease and other diseases of the circulatory system; Z87.440 Personal history of urinary (tract) infections
CPT/HCPCS: 36415; 74420; 80048; 83735; 85025; C1758; J0696; J1100; J1580; J2001; J2405; J3010; J7030; U0002

== ENCOUNTER 2020-07-10 08:40 | Inpatient (IN) | payer MEDICARE, OTHER ==
[2020-07-05 11:53] LABS: BASOPHILS % 0.6 % (0.0-1.0); EOSINOPHILS # (AUTO) 0.3 (0.0-0.4); EOSINOPHILS % 5.2 % (0.0-6.0); HEMATOCRIT 36.2 % (38.2-49.6); LYMPHOCYTES # (AUTO) 1.7 (1.0-3.2); LYMPHOCYTES % 31.3 % (18.0-39.1); MEAN CORPUSCULAR HEMOGLOBIN 31.5 pg (28-32); MEAN CORPUSCULAR HGB CONC 33.1 g/dL (31-35); MONOCYTES # (AUTO) 0.4 (0.2-0.8); NEUTROPHILS % 55.7 % (38.7-80.0); PLATELET COUNT 182 x10e3/uL (140-360); RED BLOOD COUNT 3.81 x10e6/uL (4.3-5.7); RED CELL DISTRIBUTION WIDTH 12.5 % (11.7-14.4)
[2020-07-05 12:13] LABS: ALANINE AMINOTRANSFERASE 16 IU/L (0-55); ALBUMIN 4.1 g/dL (3.5-5.0); ALBUMIN/GLOBULIN RATIO 1.2 (0.8-2.0); ALKALINE PHOSPHATASE 81 IU/L (40-150); ANION GAP 13.5 mmol/L (8-16); BLOOD UREA NITROGEN 25 mg/dL (7-26); BUN/CREATININE RATIO 23 (6-25); CALCIUM 9.3 mg/dL (8.4-10.2); CARBON DIOXIDE 26 mmol/L (22-29); CHLORIDE 107 mmol/L (98-107); EST GLOMERULAR FILTRATION RATE > 60 ML/MIN (60-); GLUCOSE 113 mg/dL (74-118); POTASSIUM 4.5 mmol/L (3.5-5.1); SODIUM 142 mmol/L (136-145)
[~2020-07-10] VITALS: Ht 182.9 cm; Wt 83.1 kg
[~2020-07-10 08:40] MED LIST changes: +DORZOLAMIDE 2%10 ML OP; +OXYBUTYNIN CHLOR5 M1 PO
[2020-07-10] MEDS ORDERED: CEFTRIAXONE SOD 1 GM VIAL ONE (09:12)
[2020-07-10] MEDS ORDERED: SODIUM CHLORIDE 0.9% 50ML 50 ML ONE (09:13)
[2020-07-10] MEDS ORDERED: GENTAMICIN 80MG/NS 100 ML 200 ML IV ONE (09:13)
[2020-07-10] MEDS ORDERED: IOPAMIDOL 300MG/ML 50ML INFUS..BTL IV ONE (10:13)
[2020-07-10] MEDS ORDERED: B&O 60MG R/S 60 MG SUPP PR ONE (10:13)
[2020-07-10] MEDS ORDERED: ONDANSETRON HCL INJ 2MG/ML 2ML 2 MG/ML VIAL IV PRN (12:15)
[2020-07-10] MEDS ORDERED: B&O 60MG R/S 60 MG SUPP PR PRN (12:15)
[2020-07-10] MEDS ORDERED: PHENAZOPYRIDINE HCL 100 MG TAB PO PRN (12:15)
[2020-07-10] MEDS ORDERED: CEFTRIAXONE SOD 1 GM VIAL IV SCH (12:15)
[2020-07-10] MEDS ORDERED: DIPHENHYDRAMINE HCL 25 MG CAP PO PRN (12:15)
[2020-07-10] MEDS ORDERED: ACETAMINOPHEN/CODEINE 300MG - 30MG TAB PO PRN (12:15)
[2020-07-10 12:36] LABS: BASOPHILS % 0.4 % (0.0-1.0); EOSINOPHILS # (AUTO) 0.2 (0.0-0.4); EOSINOPHILS % 5.3 % (0.0-6.0); HEMOGLOBIN 11.5 g/dL (14.0-18.0); LYMPHOCYTES # (AUTO) 1.4 (1.0-3.2); LYMPHOCYTES % 31.8 % (18.0-39.1); MEAN CORPUSCULAR HEMOGLOBIN 31.4 pg (28-32); MEAN CORPUSCULAR HGB CONC 32.9 g/dL (31-35); MEAN CORPUSCULAR VOLUME 95.6 fL (81-99); MONOCYTES # (AUTO) 0.2 (0.2-0.8); MONOCYTES % 4.9 % (4.4-11.3); NEUTROPHILS # (AUTO) 2.6 (2.1-6.9); NEUTROPHILS % 57.2 % (38.7-80.0); PLATELET COUNT 154 x10e3/uL (140-360); RED BLOOD COUNT 3.66 x10e6/uL (4.3-5.7); RED CELL DISTRIBUTION WIDTH 12.3 % (11.7-14.4)
[2020-07-10 12:52] LABS: ANION GAP 12.3 mmol/L (8-16); BLOOD UREA NITROGEN 18 mg/dL (7-26); BUN/CREATININE RATIO 21 (6-25); CARBON DIOXIDE 25 mmol/L (22-29); CHLORIDE 110 mmol/L (98-107); CREATININE, SERUM 0.84 mg/dL (0.72-1.25); EST GLOMERULAR FILTRATION RATE > 60 ML/MIN (60-); GLUCOSE 104 mg/dL (74-118); POTASSIUM 4.3 mmol/L (3.5-5.1); SODIUM 143 mmol/L (136-145)
[2020-07-10] MEDS ORDERED: FENTANYL CITRATE/PF 100MCG/2 ML INJ ONE ×2 (12:54→13:51)
[2020-07-10] MEDS ORDERED: SEVOFLURANE INHAL SOLN 250 ML PEN BTL ONE (14:08)
[2020-07-10] MEDS ORDERED: DEXAMETHASONE SOD PHOS INJ 4 MG/ML VIAL ONE (14:08)
[2020-07-10] MEDS ORDERED: LIDOCAINE HCL 2% LOCAL INJ 5 ML SDV VIAL INJ ONE (14:08)
[2020-07-10] MEDS ORDERED: POVIDONE IODINE 0.05% 0.05 % ML PO ONE (14:08)
[2020-07-10] MEDS ORDERED: ONDANSETRON HCL INJ 2MG/ML 2ML 2 MG/ML VIAL ONE (14:08)
[2020-07-10] MEDS ORDERED: PROPOFOL IV EMULSION 10 MG/ML 20 ML VIAL ONE (14:08)
[2020-07-10] MEDS ORDERED: GLYCOPYRROLATE INJ 0.2 MG/ML VIAL ONE (14:08)
[2020-07-10 16:30] VITALS: BP 143/70
[2020-07-10] MEDS: D5.45%NS/KCL 20MEQ 1,000 ML IV SCH (17:00)
[2020-07-10] MEDS: DOCUSATE SODIUM 100 MG CAP PO SCH (17:01)
[2020-07-10 18:22] VITALS: BP 143/70
[2020-07-10 20:00] VITALS: BP 118/62
[2020-07-11] VITALS (9 sets, daily range): BP systolic 104–129; BP diastolic 54–71
[2020-07-11] MEDS: D5.45%NS/KCL 20MEQ 1,000 ML IV SCH ×2 (00:24→09:30)
[2020-07-11 05:27] LABS: BASOPHILS % 0.3 % (0.0-1.0); EOSINOPHILS # (AUTO) 0.1 (0.0-0.4); EOSINOPHILS % 0.7 % (0.0-6.0); HEMATOCRIT 31.6 % (38.2-49.6); HEMOGLOBIN 10.6 g/dL (14.0-18.0); LYMPHOCYTES # (AUTO) 1.2 (1.0-3.2); LYMPHOCYTES % 16.9 % (18.0-39.1); MEAN CORPUSCULAR HEMOGLOBIN 31.5 pg (28-32); MEAN CORPUSCULAR HGB CONC 33.5 g/dL (31-35); MONOCYTES # (AUTO) 0.5 (0.2-0.8); MONOCYTES % 7.7 % (4.4-11.3); NEUTROPHILS # (AUTO) 5.1 (2.1-6.9); NEUTROPHILS % 73.8 % (38.7-80.0); PLATELET COUNT 156 x10e3/uL (140-360); RED BLOOD COUNT 3.36 x10e6/uL (4.3-5.7); RED CELL DISTRIBUTION WIDTH 12.1 % (11.7-14.4)
[2020-07-11 06:12] LABS: ALANINE AMINOTRANSFERASE 16 IU/L (0-55); ALBUMIN 3.3 g/dL (3.5-5.0); ALBUMIN/GLOBULIN RATIO 1.2 (0.8-2.0); ALKALINE PHOSPHATASE 64 IU/L (40-150); ANION GAP 9.1 mmol/L (8-16); BLOOD UREA NITROGEN 16 mg/dL (7-26); BUN/CREATININE RATIO 19 (6-25); CALCIUM 8.7 mg/dL (8.4-10.2); CARBON DIOXIDE 26 mmol/L (22-29); CHLORIDE 107 mmol/L (98-107); CREATININE, SERUM 0.85 mg/dL (0.72-1.25); EST GLOMERULAR FILTRATION RATE > 60 ML/MIN (60-); GLUCOSE 140 mg/dL (74-118); MAGNESIUM 1.9 MG/DL (1.3-2.1); POTASSIUM 4.1 mmol/L (3.5-5.1); SODIUM 138 mmol/L (136-145)
[2020-07-11] MEDS: OXYBUTYNIN CHLORIDE XL 5 MG TAB PO SCH (09:00)
[2020-07-11] MEDS: CEFTRIAXONE SOD 1 GM in SODIUM CHLORIDE 0.9% 50ML 50 ML IV SCH (09:00)
[2020-07-11] MEDS: DOCUSATE SODIUM 100 MG CAP PO SCH ×2 (09:00→17:00)
[2020-07-11] MEDS ORDERED: DIGOXIN 0.125 MG TAB PO SCH (21:00)
[2020-07-11] MEDS ORDERED: METOPROLOL SUCCINATE 25 MG TAB XL PO SCH (21:00)
[2020-07-11] MEDS ORDERED: LATANOPROST(OPTH) 2.5 ML BTL OP SCH (21:00)
[2020-07-12] MEDS: D5.45%NS/KCL 20MEQ 1,000 ML IV SCH ×2 (03:30→06:31)
[2020-07-12 05:03] VITALS: BP 125/70
[2020-07-12 05:21] LABS: BASOPHILS % 0.3 % (0.0-1.0); EOSINOPHILS # (AUTO) 0.3 (0.0-0.4); EOSINOPHILS % 5.7 % (0.0-6.0); HEMOGLOBIN 10.9 g/dL (14.0-18.0); LYMPHOCYTES # (AUTO) 1.5 (1.0-3.2); LYMPHOCYTES % 24.5 % (18.0-39.1); MEAN CORPUSCULAR HEMOGLOBIN 31.3 pg (28-32); MEAN CORPUSCULAR VOLUME 94.8 fL (81-99); MONOCYTES # (AUTO) 0.5 (0.2-0.8); MONOCYTES % 8.3 % (4.4-11.3); NEUTROPHILS # (AUTO) 3.6 (2.1-6.9); NEUTROPHILS % 60.9 % (38.7-80.0); PLATELET COUNT 149 x10e3/uL (140-360); RED BLOOD COUNT 3.48 x10e6/uL (4.3-5.7); RED CELL DISTRIBUTION WIDTH 12.5 % (11.7-14.4)
[2020-07-12 05:38] LABS: ANION GAP 10.1 mmol/L (8-16); BLOOD UREA NITROGEN 17 mg/dL (7-26); BUN/CREATININE RATIO 19 (6-25); CALCIUM 8.7 mg/dL (8.4-10.2); CARBON DIOXIDE 26 mmol/L (22-29); CHLORIDE 109 mmol/L (98-107); CREATININE, SERUM 0.89 mg/dL (0.72-1.25); EST GLOMERULAR FILTRATION RATE > 60 ML/MIN (60-); GLUCOSE 102 mg/dL (74-118); POTASSIUM 4.1 mmol/L (3.5-5.1); SODIUM 141 mmol/L (136-145)
[2020-07-12 07:31] VITALS: BP 135/64
[2020-07-12 07:38] VITALS: BP 135/64
[2020-07-12] MEDS: OXYBUTYNIN CHLORIDE XL 5 MG TAB PO SCH (08:53)
[2020-07-12] MEDS: DOCUSATE SODIUM 100 MG CAP PO SCH (08:53)
[2020-07-12] MEDS: CEFTRIAXONE SOD 1 GM in SODIUM CHLORIDE 0.9% 50ML 50 ML IV SCH (08:53)
[2020-07-12 11:31] VITALS: BP 135/64
[2020-07-12] MEDS ORDERED: ONDANSETRON HCL 4 MG ORAL DISINTEGRATING TAB PO PRN (13:00)
[2020-07-12] MEDS ORDERED: CEFUROXIME250 MG PO (14:31)
== END 2020-07-12 14:45 | disposition home or self-care (01) | DRG 713 ==
LOC: OR 08:40 → PACU V 12:42 → MED/SURG 16:35
PROVIDERS: ADMIT Internal Medicine; ATTEND Internal Medicine
PROC: 0TCB8ZZ Extirpation of Matter from Bladder, Via Natural or Artificial Opening Endoscopic (ICD-10-PCS; principal; 2020-07-10 10:30)
PROC: 0VB08ZZ Excision of Prostate, Via Natural or Artificial Opening Endoscopic (ICD-10-PCS; 2020-07-10 10:30)
DX: N40.1 Benign prostatic hyperplasia with lower urinary tract symptoms (principal); N39.0 Urinary tract infection, site not specified; N13.8 Other obstructive and reflux uropathy; N39.41 Urge incontinence; R39.14 Feeling of incomplete bladder emptying; R35.1 Nocturia; R39.12 Poor urinary stream; R31.0 Gross hematuria; N52.9 Male erectile dysfunction, unspecified; N32.81 Overactive bladder; N43.3 Hydrocele, unspecified; C61 Malignant neoplasm of prostate; Z20.822 Contact with and (suspected) exposure to COVID-19; N21.0 Calculus in bladder; Z79.890 Hormone replacement therapy
CPT/HCPCS: 36415; 71046; 74420; 80048; 80053; 83735; 84152; 85025; 88300; 88305; C1758; J0696; J1100; J1580; J2001; J2405; J3010; U0002

== ENCOUNTER → 2020-12-03 | Day surgery (SDC) | payer MEDICARE, OTHER ==
[~2020-12-03] MED LIST changes: +CEFUROXIME250 MG PO; +OR PHACO EYE KIT ONE; +PREOP PHACO EYE KIT ONE
[2020-12-03 12:45] VITALS: BP 150/75
== END | disposition home or self-care (01) ==
LOC: OR 10:41
PROVIDERS: ATTEND Ophthalmology
DX: H25.12 Age-related nuclear cataract, left eye (principal); I48.91 Unspecified atrial fibrillation; Z01.812 Encounter for preprocedural laboratory examination; Z20.822 Contact with and (suspected) exposure to COVID-19
CPT/HCPCS: 66984; U0002

== ENCOUNTER → 2020-12-17 | Day surgery (SDC) | payer MEDICARE, OTHER ==
[2020-12-16 11:05] LABS: BASOPHILS % 0.4 % (0.0-1.0); EOSINOPHILS # (AUTO) 0.3 (0.0-0.4); EOSINOPHILS % 5.5 % (0.0-6.0); HEMATOCRIT 33.3 % (38.2-49.6); HEMOGLOBIN 10.9 g/dL (14.0-18.0); LYMPHOCYTES # (AUTO) 1.5 (1.0-3.2); LYMPHOCYTES % 32.3 % (18.0-39.1); MEAN CORPUSCULAR HEMOGLOBIN 30.9 pg (28-32); MEAN CORPUSCULAR HGB CONC 32.7 g/dL (31-35); MEAN CORPUSCULAR VOLUME 94.3 fL (81-99); MONOCYTES # (AUTO) 0.3 (0.2-0.8); MONOCYTES % 7.3 % (4.4-11.3); NEUTROPHILS # (AUTO) 2.5 (2.1-6.9); NEUTROPHILS % 54.3 % (38.7-80.0); PLATELET COUNT 158 x10e3/uL (140-360); RED BLOOD COUNT 3.53 x10e6/uL (4.3-5.7); RED CELL DISTRIBUTION WIDTH 12.6 % (11.7-14.4)
[~2020-12-17] MED LIST changes: +CITRACAL + D M1 EACH PO; +FENTANYL CITRATE/PF 100MCG/2 ML INJ ONE; +LUPRON DEPOT7.5 MG SQ; +MULTI-VITAMIN1 EACH PO
[2020-12-17 12:20] VITALS: BP 154/74
== END | disposition home or self-care (01) ==
LOC: OR 10:14
PROVIDERS: ATTEND Ophthalmology
DX: H25.11 Age-related nuclear cataract, right eye (principal); I25.10 Atherosclerotic heart disease of native coronary artery without angina pectoris; I49.1 Atrial premature depolarization; D64.9 Anemia, unspecified; R05.9 Cough, unspecified; Z01.812 Encounter for preprocedural laboratory examination; Z20.822 Contact with and (suspected) exposure to COVID-19; Z79.82 Long term (current) use of aspirin; Z85.46 Personal history of malignant neoplasm of prostate
CPT/HCPCS: 36415; 66984; 85025; J3010; U0002

== ENCOUNTER 2024-05-23 02:00 | Emergency (ER) | payer MEDICARE, OTHER ==
[~2024-05-23] VITALS: Ht 182.9 cm; Wt 83.9 kg
[~2024-05-23 02:00] MED LIST changes: -FENTANYL CITRATE/PF 100MCG/2 ML INJ ONE; -OR PHACO EYE KIT ONE; -PREOP PHACO EYE KIT ONE
[2024-05-23 02:15] VITALS: TEMP 98.1
[2024-05-23 03:00] VITALS: PULSE 58; RESP 18
[2024-05-23] MEDS: LIDOCAINE JELLY 2% 10ML URO-JET TOP ONE (03:46)
[2024-05-23 04:14] LABS: BILIRUBIN,URINE NEGATIVE (NEGATIVE); CLARITY,URINE CLEAR (CLEAR); COLOR,URINE YELLOW (YELLOW); GLUCOSE, URINE NEGATIVE (NEGATIVE); KETONES,URINE NEGATIVE (NEGATIVE); LEUKOCYTE ESTERASE ,URINE NEGATIVE (NEGATIVE); NITRITE,URINE NEGATIVE (NEGATIVE); PH,URINE 7 (5 - 7); PROTEIN,URINE DIPSTICK 1+ (NEGATIVE); URINE UROBILINOGEN 0.2 mg/dL (0.2 - 1)
[2024-05-23 04:23] VITALS: BP 118/63; PULSE 65; RESP 16; TEMP 98; O2SAT 98
[2024-05-23 05:20] LABS: BACTERIA,URINE MODERATE /HPF; EPITHELIAL CELLS,URINE FEW /LPF; RBC,URINE 21-50 /HPF (0-5)
[2024-05-23] MEDS ORDERED: PYRIDIUM100 MG PO (16:15)
== END 2024-05-23 04:15 | disposition home or self-care (01) ==
LOC: ER 02:11
DX: R33.9 Retention of urine, unspecified (principal); I48.91 Unspecified atrial fibrillation; M19.09 Primary osteoarthritis, other specified site; Z85.51 Personal history of malignant neoplasm of bladder
CPT/HCPCS: 51700; 81001; 87086; 99283

== ENCOUNTER 2024-05-23 13:30 | Emergency (ER) | payer MEDICARE, OTHER ==
[~2024-05-23] VITALS: Ht 182.9 cm; Wt 83.9 kg
[2024-05-23 15:53] VITALS: PULSE 69; RESP 16; TEMP 97.9; O2SAT 98
[2024-05-23] MEDS ORDERED: PYRIDIUM100 MG PO (16:15)
[2024-06-29] MEDS ORDERED: MIRALAX17 GM PO (10:53)
[2024-06-29] MEDS ORDERED: PRESERVISION A1 EAC5 PO (10:53)
[2024-06-29] MEDS ORDERED: VIAGRA100 MG PO (10:53)
[2024-06-29] MEDS ORDERED: COLACE100 M1 PO (10:53)
[2024-06-29] MEDS ORDERED: MAGNESIUM PO (10:53)
[2024-06-29] MEDS ORDERED: RESVERATROL250 MG PO (10:53)
== END 2024-05-23 16:45 | disposition home or self-care (01) ==
LOC: ER 15:38
DX: Z46.6 Encounter for fitting and adjustment of urinary device (principal); I48.91 Unspecified atrial fibrillation; M19.09 Primary osteoarthritis, other specified site; Z85.89 Personal history of malignant neoplasm of other organs and systems
CPT/HCPCS: 81001; 87086; 99283